=== PATIENT | female | born 1970 | race Caucasian/White ===

== ENCOUNTER 2023-07-07 05:36 | Day surgery (SDC) | payer SELFPAY ==
[2023-07-02 05:44] LABS: Basophils % (A) 0 %; Eosinophils # (A) 0.1 k/uL (0-0.7); Eosinophils % (A) 2 %; HCT 41.5 % (34.0-46.0); HGB 13.6 gm/dL (11.4-16.0); Lymphocytes # (A) 2.7 k/uL (1.0-4.8); Lymphocytes % (A) 39 %; MCH 29.9 pg (25.0-35.0); MCHC 32.7 g/dL (31.0-37.0); MCV 91.5 fL (80.0-100.0); Mean Platelet Volume 7.5; Monocytes # (A) 0.4 k/uL (0-1.0); Monocytes % (A) 5 %; Neutrophils # (A) 3.6 k/uL (1.3-7.7); Neutrophils % (A) 52 %; Platelet Count 272 k/uL (150-450); RBC 4.53 m/uL (3.80-5.40); RDW 13.3 % (11.5-15.5); WBC 6.9 k/uL (3.8-10.6)
[2023-07-02 06:11] LABS: African American GFR (CKD) >90 (>60 ml/min/1.73 sqM); Anion Gap 8 mmol/L; Blood Urea Nitrogen 23 mg/dL (7-17); Calcium 9.9 mg/dL (8.4-10.2); Carbon Dioxide 29 mmol/L (22-30); Chloride 101 mmol/L (98-107); Glucose 132 mg/dL (74-99); Non-African American GFR(CKD) 85 (>60 ml/min/1.73 sqM); Potassium 4.3 mmol/L (3.5-5.1); Sodium 138 mmol/L (137-145)
[2023-07-06 10:10] VITALS: BMI 37.9
--- NOTE | 2023-07-06 15:26 | P.HPOR ---
History of Present Illness H&P Date: 07/06/23 Subjective: This is a 53 year old female that presents today for initial evaluation regarding a left wrist injury that occurred on 06/25/2023 when she was walking in her driveway and fell onto an outstretched hand and had immediate pain, swelling, and deformity of her left wrist. She was seen at [facility] where she was placed in a sugar tong splint and has been immobilized since then. She denies any numbness or tingling. She denies any other areas of pain. She denies any prior surgery on this hand. 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 Physical Examination: LUE: AIN/PIN/Radial/Ulnar/Median motor intact. Radial/Ulnar/Median SILT. 2+/4 Radial/Ulnar pulses palpated. 5/5 APB, 5/5 FDI. TTP over distal radius with bruising/swelling present. Visual deformity present. Imaging: X-Rays of the left wrist 3V taken in office today demonstrates left intra- articular distal radius fracture with approximately 50 of dorsal angulation. Minimally displaced ulnar styloid base fracture. Impression: 1.) Left intra-articular distal radius fracture 2.) Left ulnar styloid base fracture Plan: Diagnosis and treatment options were discussed with the patient. Due to the amount of displacement I recommend surgical intervention with left distal radius open reduction internal fixation. Risks and benefits of surgery including bleed ing, infection, damage to surrounding tissue, need for further surgery, residual numbness were discussed and the patient wished to go forward with surgery. She wishes to return to work with right handed work only as soon as possible. The patient was agreeable with this plan. -Martinez Carolina DO Orthopedic Hand/Upper Extremity Surgeon Past Medical History Past Medical History: COPD, Diabetes Mellitus, Hypertension Additional Past Medical History / Comment(s): diet control diabetes,fx left wrist w/ fall,hx pablo wrist fx,rt ankle fx History of Any Multi-Drug Resistant Organisms: None Reported Past Surgical History: Cholecystectomy, Hysterectomy Additional Past Surgical History / Comment(s): partial hyst,ORIF rt ankle- hardware remains, lysis of adhesions,goiter removed,external fixator rt wrist Past Anesthesia/Blood Transfusion Reactions: No Reported Reaction Additional Past Anesthesia/Blood Transfusion Reaction / Comment(s): no hx blood transfusion Smoking Status: Former smoker - Past Family History Mother Family Medical History: Cancer Additional Family Medical History / Comment(s): lung CA Sister(s) Family Medical History: Cancer Additional Family Medical History / Comment(s): breast CA Father Family Medical History: Hypertension, Liver Disease Additional Family Medical History / Comment(s): cirrhosis of liver,ETOH induced diabetes Medications and Allergies Home Medications Medication Instructions Recorded Confirmed Type Ibuprofen [Motrin] 600 mg PO Q6HR PRN 07/06/23 07/06/23 History Multivit with Calcium,Iron,Min 1 each PO DAILY 07/06/23 07/06/23 History [Women's Multivitamin] Vitamin C/Biotin [Hair, Skin and 1 tab PO DAILY 07/06/23 07/06/23 History Nails Chew] Allergies Allergy/AdvReac Type Severity Reaction Status Date / Time No Known Allergies Allergy Verified 07/06/23 09:30 Physical Examination Osteopathic Statement: *. No significant issues noted on an osteopathic structural exam other than those noted in the History and Physical/Consult. Results - Labs Labs: H & H 07/02/23 Range/Units 05:27 Hgb 13.6 (11.4-16.0) gm/dL Hct 41.5 (34.0-46.0) % Result Diagrams: 07/02/23 05:27 07/02/23 05:27
[2023-07-07] MEDS ORDERED: LACTATED RINGERS 1,000 ML IV ONE ×2 (06:26→08:35)
[2023-07-07 06:42] LABS: Glucose,Whole Blood 136 mg/dL (70-110)
[2023-07-07] MEDS ORDERED: ONDANSETRON 4 MG/2 ML VIAL ONE (06:50)
[2023-07-07] MEDS ORDERED: MIDAZOLAM 2 MG/2 ML VIAL IVP ONE (06:55)
[2023-07-07] MEDS ORDERED: fentaNYL (PF) 50 MCG/ML 2 ML AMP IVP ONE (06:55)
[2023-07-07] MEDS ORDERED: ONDANSETRON 4 MG/2 ML VIAL IVP ONE (07:08)
[2023-07-07] MEDS ORDERED: DEXAMETHASONE SOD PHOSPHATE 4 MG/ML 1 ML VIAL IVP ONE (07:08)
[2023-07-07] MEDS ORDERED: SUCCINYLCHOLINE CHLORIDE 200 MG/10 ML VIAL IV ONE (07:22)
[2023-07-07] MEDS ORDERED: ePHEDrine 50 MG/ML 1 ML VIAL ONE (07:22)
[2023-07-07] MEDS ORDERED: ROPIVACAINE 5 MG/ML 30 ML VIAL ONE (07:22)
[2023-07-07] MEDS ORDERED: NEOSTIGMINE 1 MG/ML 10 ML VIAL ONE (07:22)
[2023-07-07] MEDS ORDERED: PROPOFOL 10 MG/ML 20 ML VIAL IV ONE (07:22)
[2023-07-07] MEDS ORDERED: PHENYLEPHRINE-0.9% NACL SYG 1,000 MCG/10 ML SYRINGE ONE (07:22)
[2023-07-07] MEDS ORDERED: fentaNYL (PF) 50 MCG/ML 2 ML AMP ONE (07:22)
[2023-07-07] MEDS ORDERED: GLYCOPYRROLATE 0.2 MG/ML 2 ML VIAL ONE (07:22)
[2023-07-07] MEDS ORDERED: SODIUM CHLORIDE 0.9% (PF) 10 ML VIAL ONE (07:22)
[2023-07-07] MEDS ORDERED: LIDOCAINE 1% INJ 10MG/ML (20 ML MDV) ONE (07:22)
[2023-07-07] MEDS ORDERED: ROCURONIUM 10 MG/ML (5 ML VIAL) IV ONE (07:22)
--- NOTE | 2023-07-07 07:24 | P.ANPRN ---
Procedure Note - Anesthesia - Nerve Block Performed Left Axillary Single Time Out Performed: Yes ([id number]) Date of Procedure: 07/07/23 Procedure Start Time: 06:56 Procedure Stop Time: 06:59 Indication: Acute Post-Operative Pain, Requested by Surgeon Specifically requested for management of pain by DrJesus: Martinez Carolina Sedation Type: Sedate with meaningful contact maintained Preparation: Sterile Prep Position: Supine (arm over) Catheter: None Needle Types: Pajunk Needle Gauge: 21 Ultrasound used to visualize needle placement: Yes Ultrasound used to observe medication spread: Yes Injectate: 0.5% Ropivacaine (see comment for volume) (30cc + 10cc nacl pf (10cc aliquots around each mskcut, radial median ulnar) Blood Aspirated: No Pain Paresthesia on Injection Noted: No Resistance on Injection: Normal Image Stored and Saved: Yes Events: Uneventful and Well Tolerated
--- NOTE | 2023-07-07 08:53 | P.OP ---
Date of Procedure: 07/07/23 Preoperative Diagnosis: Left intra-articular distal radius fracture Postoperative Diagnosis: Left intra-articular distal radius fracture Procedure(s) Performed: Open reduction internal fixation of left intra-articular distal radius fracture, 3 part. Implants: Barbi Short length standard width Variax 2 volar distal locking plate Anesthesia: [place], regional Surgeon: Martinez Carolina Estimated Blood Loss (ml): 10 Pathology: none sent Condition: stable Disposition: PACU Description of Procedure: This is a 53 year old female who sustained a displaced intra-articular distal radius fracture and presents today for open reduction internal fixation of their left distal radius fracture. Risks and benefits of surgery were discussed with the patient including bleeding, damage to surrounding tissue, infection, need for further surgery as well as risks of anesthesia including pulmonary embolism and even and the patient wished to proceed with surgical intervention. The patients was seen in the pre-operative area by myself. Consent and H&P were completed and updated. The correct extremity was marked in the pre-operative area by myself and all other questions were answered. Operative Narrative: The patient was brought to the operating room by the department of anesthesia. They remained on the portable stretcher and a rolling hand table was brought to the side of the operative extremity. Pre-operative time out was per formed indicating the correct patient, procedure and laterality. All in the room agreed. Pre-operative antibiotics were given prior to skin incision. The patient was then drifted off to sleep by the department of anesthesia. A nonsterile tourniquet was then applied to the operative extremity and the left upper extremity was then prepped and draped in normal sterile fashion. The operative extremity was the exsanguinated with an esmarch bandage and the tourniquet was inflated to 250mmHg. A longitudinal incision centered over the FCR tendon was made with a 15-blade scalpel. Blunt dissection was taken down to the FCR tendon sheath using Bovie cautery for meticulous hemostasis. The FCR sheath was opened with tenotomy scissors. The floor of the FCR sheath was then incised with a 15-blade scalpel and the FPL tendon and muscle belly was swept bluntly in an ulnar direction to reveal the pronator quadratus. Pronator quadratus was sharply incised with a 15-blade scalpel along the radial border of the distal radius, coming across transversely parallel to the joint at the level of the watershed line, radial artery was identified and protected. Periosteal elevator was then used to elev ate the pronator quadratus off the distal radius from a radial to ulnar fashion. A [place] elevator was used to lever the distal piece back into place and free up the fractured fragments. A Standard width short length 3 hole [place] Variax 2 titanium volar locking distal radius plate was chosen to fit the patients anatomy best. This was placed on the distal radius under direct visualization and the oblong hole was drilled and filled with a non-locking screw. The fracture was then reduced to the plate distally and a k-wire was placed in the ulnar most k-wire hole in the proximal row. Fluoroscopy was then utilized to confirm correct placement of plate in the radial/ulnar plane and distal k-wire placement was confirmed to be proximal to the subchondral bone on 20 degree elevated lateral view confirming extra-articular screw placement. Restorationism of radial height, inclination and volar tilt was achieved. The distal rows and radial styloid screw holes were then drilled and filled from ulnar to radial with locking screws. Attention was then brought to the proximal shaft screws. Proximal nonlocking and locking shaft screws were drilled, measured, and filled. The wrist joint was the ranged and full smooth flexion/extension with no crepitus appreciated. Final imaging was taken confirming extra-articular placement of distal screws at DRUJ and radiocarpal joint. The wound was then irrigated. Subcutaneous closure was performed with 4-0 monocryl followed by skin closure with 4-0 nylon suture. Sterile dressing consisting of adaptic, 4x4s, and a volar plaster splint was applied. Tourniquet was let down and the hand had immediate perfusion. The patient was then woken by the department of anesthesia and transferred to PACU in stable condition. Martinez Carolina D.O. Orthopedic Hand/Upper Extremity Surgeon
[2023-07-07] MEDS ORDERED: HYDROmorphone 0.5 MG/0.5 ML SYRINGE IVP ONE ×2 (09:09→09:15)
[2023-07-07 09:10] VITALS: TEMP 97.5
[2023-07-07] MEDS ORDERED: HYDROcodone/APAP 5-325MG 1 EACH TAB ONE (09:49)
[2023-07-07 10:00] VITALS: BP 137/78; PULSE 73; RESP 20
[2023-07-07] MEDS ORDERED: droPERidol 5 MG/2 ML VIAL IVP ONE (10:19)
== END 2023-07-07 11:08 | disposition home or self-care (01) ==
LOC: OR 05:36
PROVIDERS: ATTEND Orthopaedic Surgery Hand Surgery
DX: S52.572A Other intraarticular fracture of lower end of left radius, initial encounter for closed fracture (principal); S52.612A Displaced fracture of left ulna styloid process, initial encounter for closed fracture; E11.9 Type 2 diabetes mellitus without complications; I10 Essential (primary) hypertension; J44.9 Chronic obstructive pulmonary disease, unspecified; Z79.899 Other long term (current) drug therapy; Z87.891 Personal history of nicotine dependence; W19.XXXA Unspecified fall, initial encounter; Y93.01 Activity, walking, marching and hiking
CPT/HCPCS: 64415; 80048; 85025; 25609; C1713; J2250; J0330; J1100; J2710; J0690; J2405; J2001; J3010; J2795; J2704; J1170; J1790; J2371

== ENCOUNTER 2024-01-17 22:27 | Emergency (ER) | payer MEDICAID ==
--- NOTE | 2024-01-17 22:52 | ED ---
Chest Pain HPI - General Chief Complaint: Chest Pain Stated Complaint: Chest Pain Time Seen by Provider: 01/17/24 22:38 Source: patient Mode of arrival: ambulatory Limitations: no limitations - History of Present Illness Initial Comments: This patient is a 53-year-old woman who presents to have evaluation of diaphoresis and chest pressure. The patient states she was working here doing her usual duties when she noticed that she was developing diaphoresis. The patient was very sweaty, and after a few minutes she noticed that there was pressure on her chest and the upper sternal portion. She denied dyspnea, palpitations, nausea or vomiting. Patient states that when the symptoms persisted for 20 minutes she checked and. The symptoms have improved, the diaphoresis has stopped and the chest pressure has cleared. Patient denies known history of cardiac disease. No smoking history. MD Complaint: chest pain -: minutes(s) Onset: during rest Pain Location: substernal Pain Radiation: none Severity: mild Quality: other (Pressure) Consistency: now resolved Improves With: nothing Worsens With: nothing Anginal Symptoms: diaphoresis Treatments Prior to Arrival: none - Related Data Home Medications Medication Instructions Recorded Confirmed Ibuprofen [Motrin] 600 mg PO Q6HR PRN 07/06/23 07/07/23 Multivit with Calcium,Iron,Min 1 each PO DAILY 07/06/23 07/07/23 [Women's Multivitamin] Vitamin C/Biotin [Hair, Skin and 1 tab PO DAILY 07/06/23 07/07/23 Nails Chew] Previous Rx's Medication Instructions Recorded HYDROcodone/APAP 5-325MG [[place] 1 tab PO Q6HR PRN 3 Days #24 tab 07/07/23 5-325] Nitrofurantoin Monohyd/M-Cryst 100 mg PO Q12HR #6 cap 01/18/24 [Macrobid] hydroCHLOROthiazide 25 mg PO DAILY #14 tablet 01/18/24 Allergies Allergy/AdvReac Type Severity Reaction Status Date / Time bupropion [From Wellbutrin] Allergy Rash/Hives Verified 01/17/24 22:37 Review of Systems ROS Statement: Those systems with pertinent positive or pertinent negative responses have been documented in the HPI. ROS Other: All systems not noted in ROS Statement are negative. Constitutional: Denies: fever, chills Respiratory: Denies: cough, dyspnea Cardiovascular: Reports: chest pain. Denies: palpitations, edema, syncope Endocrine: Denies: fatigue Gastrointestinal: Denies: abdominal pain, nausea, vomiting Genitourinary: Denies: dysuria, hematuria Musculoskeletal: Denies: back pain Skin: Denies: rash Neurological: Denies: headache, weakness, numbness EKG Findings - EKG Results: EKG: interpreted by LAUREL, sinus rhythm (Rate 60 bpm), normal axis, normal QRS, normal ST/T - Blocks, [place], Hypertrophy, ST Abn: Repolarization changes or abnormalities: Q-T interval prolongation Past Medical History Past Medical History: COPD, Diabetes Mellitus, Hypertension Additional Past Medical History / Comment(s): diet control diabetes,fx left wrist w/ fall,hx pablo wrist fx,rt ankle fx History of Any Multi-Drug Resistant Organisms: None Reported Past Surgical History: Cholecystectomy, Hysterectomy Additional Past Surgical History / Comment(s): partial hyst,ORIF rt ankle- hardware remains, lysis of adhesions,goiter removed,external fixator rt wrist Past Anesthesia/Blood Transfusion Reactions: No Reported Reaction Additional Past Anesthesia/Blood Transfusion Reaction / Comment(s): no hx blood transfusion Past Psychological History: No Psychological Hx Reported Smoking Status: Former smoker Past Alcohol Use History: None Reported Past Drug Use History: None Reported - Past Family History Mother Family Medical History: Cancer Additional Family Medical History / Comment(s): lung CA Sister(s) Family Medical History: Cancer Additional Family Medical History / Comment(s): breast CA Father Family Medical History: Hypertension, Liver Disease Additional Family Medical History / Comment(s): cirrhosis of liver,ETOH induced diabetes General Exam Limitations: no limitations General appearance: alert, in no apparent distress Head exam: Present: atraumatic, normocephalic Eye exam: Present: normal appearance. Absent: scleral icterus, conjunctival injection Neck exam: Present: normal inspection Respiratory exam: Present: normal lung sounds bilaterally. Absent: respiratory distress, wheezes, rales, rhonchi, stridor, accessory muscle use Cardiovascular Exam: Present: regular rate, normal rhythm, normal heart sounds. Absent: systolic murmur, diastolic murmur, rubs, gallop GI/Abdominal exam: Present: soft. Absent: distended, tenderness, guarding, rebound, rigid, mass Extremities exam: Present: normal inspection, normal capillary refill. Absent: pedal edema, calf tenderness Back exam: Present: normal inspection. Absent: CVA tenderness (R), CVA tenderness (L) Neurological exam: Present: alert Skin exam: Present: warm, dry, intact, normal color. Absent: rash Course Vital Signs 01/17/24 01/17/24 01/17/24 22:38 23:00 23:03 Temperature 93.0 F L 97.5 F L Pulse Rate 60 60 Respiratory 16 18 Rate Blood Pressure 203/91 199/99 O2 Sat by Pulse 100 100 Oximetry 01/17/24 01/18/24 01/18/24 23:30 00:16 00:45 Temperature 97.5 F L Pulse Rate 66 68 Respiratory 15 18 Rate Blood Pressure 169/85 198/92 226/135 O2 Sat by Pulse 100 97 Oximetry 01/18/24 01/18/24 01:03 01:22 Temperature 97.5 F L Pulse Rate 72 78 Respiratory 16 16 Rate Blood Pressure 232/146 219/119 O2 Sat by Pulse 97 97 Oximetry Chest Pain MDM - MDM The patient had chest x-ray that I interpreted as negative for acute infiltrate, pneumothorax, Cardiomegaly or congestive heart failure Patient is 53-year-old woman with episode of diaphoresis and chest discomfort. Her workup is negative. In light of her symptoms I did strongly recommend that she stay for telemetry monitoring, serial cardiac enzymes, cardiology consultation, but the patient is declining at this point. She states that she feels back at her baseline. She does agree to return if symptoms recur. She does understand possibility of missing cardiac event by stopping at this point in the workup. Was pt. sent in by a medical professional or institution (, PA, CONTRACT ADMINISTRATION MANAGER, urgent care, hospital, or [facility]...) When possible be specific @ -[No] Did you speak to anyone other than the patient for history (EMS, parent, family, police, friend...)? What history was obtained from this source @ -[No] Did you review nursing and triage notes (agree or disagree)? Why? @ -[I reviewed and agree with nursing and triage notes] Were old charts reviewed (outside hosp., previous admission, EMS record, old EKG, old radiological studies, urgent care reports/EKG's, [facility] records)? Report findings @ -[No old charts were reviewed] Differential Diagnosis (chest pain, altered mental status, abdominal pain women, abdominal pain men, vaginal bleeding, weakness, fever, dyspnea, syncope, headache, dizziness, GI bleed, back pain, seizure, CVA, palpatations, mental health, musculoskeletal)? @ -[Differential Chest Pain: Stable Angina, Unstable Angina, STEMI, NSTEMI Aortic Dissection, Pneumothorax, Musculoskeletal, Esophageal Spasm GERD, Cholecystitis, Pancreatitis, Zoster, this is not meant to be an all-inclusive list. EKG interpreted by me (3pts min.). @ -[I interpreted as above] X-rays interpreted by me (1pt min.). @ -[I interpreted as above CT interpreted by me (1pt min.). @ -[None done] U/S interpreted by me (1pt. min.). @ -[None done] What testing was considered but not performed or refused? (CT, X-rays, U/S, labs)? Why? @ -[None] What meds were considered but not given or refused? Why? @ -[None] Did you discuss the management of the patient with other professionals (professionals i.e. , PA, CONTRACT ADMINISTRATION MANAGER, lab, RT, psych nurse, social work manager, quality compliance consultant, teacher, giving officer, child support case officer)? Give summary @ -[No] Was smoking cessation discussed for >3mins.? @ -[No] Was critical care preformed (if so, how long)? @ -[No] Were there social determinants of health that impacted care today? How? (Homelessness, low income, unemployed, alcoholism, drug addiction, transportation, low edu. Level, literacy, decrease access to med. care, senior living, rehab)? @ -[No] Was there de-escalation of care discussed even if they declined (Discuss DNR or withdrawal of care, Hospice)? DNR status @ -[No] What co-morbidities impacted this encounter? (DM, HTN, Smoking, COPD, CAD, Cancer, CVA, ARF, Chemo, Hep., AIDS, mental health diagnosis, sleep apnea, morbid obesity)? @ -[None] Was patient admitted / discharged? Hospital course, mention meds given and route, prescriptions, significant lab abnormalities, going to OR and other pertinent info. @ -[See the note above Undiagnosed new problem with uncertain prognosis? @ -[No] Drug Therapy requiring intensive monitoring for toxicity (Heparin, Nitro, Insulin, Cardizem)? @ -[No] Were any procedures done? @ -[No] Diagnosis/symptom? @ -[Acute chest pain Acute, or Chronic, or Acute on Chronic? @ -[Acute Uncomplicated (without systemic symptoms) or Complicated (systemic symptoms)? @ -[default] Side effects of treatment? @ -[No] Exacerbation, Progression, or Severe Exacerbation? @ -[No] Poses a threat to life or bodily function? How? (Chest pain, [place], [place], pneumonia, PE, COPD, DKA, ARF, appy, cholecystitis, CVA, Diverticulitis, Homicidal, [place], threat to staff... and all critical care pts) @ -[There is possible threat to life, requires further evaluation, patient understands need to see cardiology Disposition Clinical Impression: Chest pain Disposition: HOME SELF-CARE Condition: Good Instructions (If sedation given, give patient instructions): Chest Pain (ED) Prescriptions: hydroCHLOROthiazide 25 mg PO DAILY #14 tablet Nitrofurantoin Monohyd/M-Cryst [Macrobid] 100 mg PO Q12HR #6 cap Is patient prescribed a controlled substance at d/c from ED?: No Referrals: Randy Casillas Jr, [Primary Care Provider] - 1-2 days Peter Joyce MD [Medical Doctor] - 1-2 days
[2024-01-17 23:13] LABS: Basophils % (A) 0 %; Eosinophils # (A) 0.2 k/uL (0-0.7); Eosinophils % (A) 2 %; HGB 14.1 gm/dL (11.4-16.0); Lymphocytes # (A) 2.7 k/uL (1.0-4.8); Lymphocytes % (A) 27 %; MCH 29.3 pg (25.0-35.0); MCHC 32.1 g/dL (31.0-37.0); MCV 91.2 fL (80.0-100.0); Mean Platelet Volume 7.3; Monocytes # (A) 0.3 k/uL (0-1.0); Monocytes % (A) 3 %; Neutrophils # (A) 6.6 k/uL (1.3-7.7); Neutrophils % (A) 66 %; Platelet Count 318 k/uL (150-450); RBC 4.82 m/uL (3.80-5.40); RDW 13.1 % (11.5-15.5)
[2024-01-17 23:27] LABS: ALT 19 U/L (4-34); African American GFR (CKD) >90 (>60 ml/min/1.73 sqM); Albumin 4.5 g/dL (3.5-5.0); Amylase 59 U/L (30-110); Anion Gap 9 mmol/L; Blood Urea Nitrogen 19 mg/dL (7-17); Calcium 9.7 mg/dL (8.4-10.2); Carbon Dioxide 25 mmol/L (22-30); Chloride 105 mmol/L (98-107); Glucose 87 mg/dL (74-99); Lipase 145 U/L (23-300); Non-African American GFR(CKD) >90 (>60 ml/min/1.73 sqM); Sodium 139 mmol/L (137-145); Total Bilirubin 0.7 mg/dL (0.2-1.3); Total Protein 7.9 g/dL (6.3-8.2)
[2024-01-17 23:32] LABS: AST 31 U/L (14-36); Alkaline Phosphatase 89 U/L (38-126); Magnesium 2.1 mg/dL (1.6-2.3)
[2024-01-17 23:33] LABS: INR 0.9 (<1.2); Partial Thromboplastin Time 25.5 sec (22.0-30.0); Prothrombin Time 10.5 sec (10.0-12.5)
[2024-01-17] MEDS: ASPIRIN 81 MG PO STA (23:34)
[2024-01-17] MEDS: LABETALOL 5 MG/ML VIAL MDV IVP STA (23:36)
[2024-01-17 23:47] VITALS: TEMP 97.5
--- NOTE | 2024-01-17 23:54 | XR ---
EXAM: XR Chest, 2 Views CLINICAL HISTORY: XR Reason: Chest Pain TECHNIQUE: Frontal and lateral views of the chest. COMPARISON: No relevant prior studies available. FINDINGS: Lungs: Slightly prominent interstitial markings throughout both lungs suggesting mild emphysema or bronchitis. No acute focal infiltrate or consolidation is seen. Pleural space: Unremarkable. No pneumothorax. Heart: Unremarkable. No cardiomegaly. Mediastinum: Unremarkable. Normal mediastinal contour. Bones/joints: Mild osteophytosis in the mid to lower thoracic spine. No acute fracture. Upper abdomen: Cholecystectomy clips in the right upper quadrant. IMPRESSION: Slightly prominent interstitial markings throughout both lungs suggesting mild emphysema or bronchitis. No acute focal infiltrate or consolidation is seen.
[2024-01-18 00:01] LABS: Amorphous Sediment,Urine Occasional /hpf; Appearance,Urine Clear (Clear); Bacteria,Urine Occasional /hpf; Bilirubin,Urine Negative (Negative); Blood,Urine Negative (Negative); Color,Urine Light Yellow; Glucose,Urine (UA) Negative (Negative); Hyaline Casts,Urine 7 /lpf (0-2); Ketones,Urine Trace (Negative); Leukocyte Esterase,Urine Trace (Negative); Mucus,Urine Occasional /hpf; Nitrite,Urine Negative (Negative); PH, Urine 5.5 (5.0-8.0); Protein,Urine Negative (Negative); Specific Gravity,Urine 1.026 (1.001-1.035); Squamous Epithelial Cell,Urine 4 /hpf (0-4); Urobilinogen,Urine <2.0 mg/dL (<2.0); WBC,Urine 12 /hpf (0-5)
[2024-01-18 00:24] LABS: T4, Free (Free Thyroxine) 1.11 ng/dL (0.78-2.19)
[2024-01-18] MEDS: SODIUM CHLORIDE 0.9% 1,000 ML IV ONE (00:56)
[2024-01-18 01:45] VITALS: BP 219/119; PULSE 78; RESP 16
== END 2024-01-18 01:25 | disposition home or self-care (01) ==
LOC: EC 22:27
DX: R07.89 Other chest pain (principal); Z87.891 Personal history of nicotine dependence; Z88.8 Allergy status to other drugs, medicaments and biological substances
CPT/HCPCS: 36415; 93005; 85379; 84439; 80053; 84443; 82150; 83605; 83690; 83735; 84484; 85025; 85610; 85730; 81001; 71046; 99285; 96374; J1920

== ENCOUNTER 2024-06-30 07:48 | Emergency (ER) | payer MEDICAID ==
[2024-06-30 07:54] VITALS: TEMP 98.1
--- NOTE | 2024-06-30 08:05 | ED ---
Upper Extremity HPI <Kashif Tinajero - Last Filed: 06/30/24 13:12> - General Source: patient, RN notes reviewed Mode of arrival: ambulatory Limitations: no limitations <Gayatri Barone - Last Filed: 06/30/24 16:40> - General Chief Complaint: Extremity Injury, Upper Stated Complaint: fell R arm injury Time Seen by Provider: 06/30/24 08:03 - History of Present Illness Initial Comments: 54-year-old female presented to the ER with a chief complaint of a fall. Patient states last night she accidentally slipped and fell landing on her right forearm. Patient could reports noted deformity to wrist and extreme pain. No head injury, loss of consciousness or blood thinner use. Patient reports paresthesias to fingers but states this is normal. Patient has not taken anything for pain at this time. Patient denies any other injuries or complaints. (Gayatri Barone) - Related Data Home Medications Medication Instructions Recorded Confirmed Ibuprofen [Motrin] 600 mg PO Q6HR PRN 07/06/23 07/07/23 Multivit with Calcium,Iron,Min 1 each PO DAILY 07/06/23 07/07/23 [Women's Multivitamin] Vitamin C/Biotin [Hair, Skin and 1 tab PO DAILY 07/06/23 07/07/23 Nails Chew] Previous Rx's Medication Instructions Recorded HYDROcodone/APAP 5-325MG [[place] 1 tab PO Q6HR PRN 3 Days #24 tab 07/07/23 5-325] Nitrofurantoin Monohyd/M-Cryst 100 mg PO Q12HR #6 cap 01/18/24 [Macrobid] hydroCHLOROthiazide 25 mg PO DAILY #14 tablet 01/18/24 Amoxicillin 875 mg PO Q12HR #20 tablet 05/04/24 HYDROcodone/APAP 7.5-325MG [[place] 1 tab PO Q6HR PRN 3 Days #12 tab 06/30/24 7.5-325] Ketorolac [Toradol] 10 mg PO Q8HR #15 tab 06/30/24 Allergies Allergy/AdvReac Type Severity Reaction Status Date / Time bupropion [From Wellbutrin] Allergy Rash/Hives Verified 06/30/24 07:54 Review of Systems ROS Other: All systems not noted in ROS Statement are negative. <Kashif Tinajero - Last Filed: 06/30/24 13:12> ROS Other: All systems not noted in ROS Statement are negative. <Gayatri Barone - Last Filed: 06/30/24 16:40> ROS Statement: Those systems with pertinent positive or pertinent negative responses have been documented in the HPI. Past Medical History Past Medical History: COPD, Diabetes Mellitus, Hypertension Additional Past Medical History / Comment(s): diet control diabetes,fx left wrist w/ fall,hx pablo wrist fx,rt ankle fx History of Any Multi-Drug Resistant Organisms: None Reported Past Surgical History: Cholecystectomy, Hysterectomy Additional Past Surgical History / Comment(s): partial hyst,ORIF rt ankle- hardware remains, lysis of adhesions,goiter removed,external fixator rt wrist Past Anesthesia/Blood Transfusion Reactions: No Reported Reaction Additional Past Anesthesia/Blood Transfusion Reaction / Comment(s): no hx blood transfusion Past Psychological History: No Psychological Hx Reported Smoking Status: Former smoker Past Alcohol Use History: None Reported Past Drug Use History: None Reported - Past Family History Mother Family Medical History: Cancer Additional Family Medical History / Comment(s): lung CA Sister(s) Family Medical History: Cancer Additional Family Medical History / Comment(s): breast CA Father Family Medical History: Hypertension, Liver Disease Additional Family Medical History / Comment(s): cirrhosis of liver,ETOH induced diabetes <Gayatri Barone - Last Filed: 06/30/24 16:40> General Exam Limitations: no limitations General appearance: alert, in no apparent distress Respiratory exam: Present: normal lung sounds bilaterally. Absent: respiratory distress, wheezes, rales, rhonchi, stridor Cardiovascular Exam: Present: regular rate, normal rhythm, normal heart sounds. Absent: systolic murmur, diastolic murmur, rubs, gallop, clicks Extremities exam: Present: tenderness (right wrist. notable dorsal deformity with edema. 2+ right radial pulse) Neurological exam: Present: alert, oriented X3, CN II-XII intact <Gayatri Barone - Last Filed: 06/30/24 16:40> Course Vital Signs 06/30/24 06/30/24 06/30/24 07:52 09:08 10:47 Temperature 98.1 F 98.1 F Pulse Rate 93 86 69 Respiratory 18 18 20 Rate Blood Pressure 162/101 162/82 157/92 O2 Sat by Pulse 99 97 94 L Oximetry 06/30/24 06/30/24 06/30/24 12:00 12:53 12:58 Temperature Pulse Rate 76 62 73 Respiratory 20 16 16 Rate Blood Pressure 153/87 156/92 150/100 O2 Sat by Pulse 99 98 99 Oximetry 06/30/24 06/30/24 06/30/24 13:02 13:06 13:51 Temperature Pulse Rate 66 60 78 Respiratory 20 20 20 Rate Blood Pressure 150/99 179/86 150/98 O2 Sat by Pulse 99 100 998 H Oximetry Procedures - Orthopedic Fracture Reduction Fracture #1 Consent Obtained: written consent Side: right Fracture Reduction Location: radius Analgesia: procedural sedation Technique: direct manipulation, traction/counter-traction Post Reduction X-rays Demonstrate: acceptable reduction Post-Reduction Neuro Exam: intact Post-Reduction Vascular Exam: intact Splint Applied: Yes Patient Tolerated Procedure: well - Procedural Sedation *Procedural Sedation Start Time: 12:53 *Procedural Sedation Stop Time: 13:25 *Risks,benefits, and alternative therapies discussed?: Yes *Patient indicates understanding of risk/benefit discussion?: Yes *Indications: fracture/dislocation reduction *Previous Adverse Reaction to Anesthesia/Sedation?: No * Testing Complete?: No Reason Test Not Complete:: Emergent Situation *ASA Class: II *Mallampati Airway Score: 2 Preparation: front desk monitor applied, pulse oximeter, capnometry used IV Propofol Dose (mgs): 100 <Kashif Tinajero - Last Filed: 06/30/24 13:12> - Orthopedic Splinting/Casting Injury #1 Side: right Upper Extremity Injury Location: wrist Upper Extremity Immobilizer: sugar tong splint <Gayatri Barone - Last Filed: 06/30/24 16:40> Medical Decision Making - Radiology Data Radiology results: report reviewed, image reviewed <Gayatri Barone - Last Filed: 06/30/24 16:40> - Medical Decision Making Was pt. sent in by a medical professional or institution (Dr. PA, SHIRT MAKER, urgent care, hospital, or [facility]...) When possible be specific @ -No Did you speak to anyone other than the patient for history (EMS, parent, family, police, friend...)? What history was obtained from this source @ -No Did you review nursing and triage notes (agree or disagree)? Why? @ -I reviewed and agree with nursing and triage notes Were old charts reviewed (outside hosp., previous admission, EMS record, old EKG, old radiological studies, urgent care reports/EKG's, [facility] records)? Report findings @ -No old charts were reviewed Differential Diagnosis (chest pain, altered mental status, abdominal pain women, abdominal pain men, vaginal bleeding, weakness, fever, dyspnea, syncope, headache, dizziness, GI bleed, back pain, seizure, CVA, palpatations, mental health, musculoskeletal)? @ -Differential Musculoskeletal: Muscular strain, contusion, ligament sprain, fracture, arthritis, septic arthritis, bursitis, cellulitis, muscle spasm, nerve compression, DVT, arterial occlusion, herpes zoster, electrolyte abnormality, tumor.... This is not meant to be in all inclusive list EKG interpreted by me (3pts min.). @ -None done X-rays interpreted by me (1pt min.). @ -Right wrist x-ray interpreted me showing a displaced of the distal right radius. There is also an ulnar styloid fracture. CT interpreted by me (1pt min.). @ -None done U/S interpreted by me (1pt. min.). @ -None done What testing was considered but not performed or refused? (CT, X-rays, U/S, labs)? Why? @ -None What meds were considered but not given or refused? Why? @ -None Did you discuss the management of the patient with other professionals (professionals i.e. , PA, SHIRT MAKER, lab, RT, psych nurse, nephrology social worker, aids nurse, teacher, transit authority police officer, protective services case worker)? Give summary @ -No Was smoking cessation discussed for >3mins.? @ -No Was critical care preformed (if so, how long)? @ -No Were there social determinants of health that impacted care today? How? (Homelessness, low income, unemployed, alcoholism, drug addiction, transportation, low edu. Level, literacy, decrease access to med. care, senior living, rehab)? @ -No Was there de-escalation of care discussed even if they declined (Discuss DNR or withdrawal of care, Hospice)? DNR status @ -No What co-morbidities impacted this encounter? (DM, HTN, Smoking, COPD, CAD, Cancer, CVA, ARF, Chemo, Hep., AIDS, mental health diagnosis, sleep apnea, morbid obesity)? @ -None Was patient admitted / discharged? Hospital course, mention meds given and route, prescriptions, significant lab abnormalities, going to OR and other pertinent info. @ -Discharge. 54-year-old female presented to the ER with a chief complaint of a fall. History and physical exam completed. Patient is hypertensive on arrival at 162/101 which is likely due to pain. Vitals otherwise unremarkable. Exam remarkable for tenderness to distal right radius with edema present. Right upper extremity neurovascularly intact. There is dorsal deformity present. X- rays obtained showing a distal radius fracture with mild displacement. There is also an ulnar styloid fracture. Patient received Dilaudid for pain control in the ER, with improvement. Conscious sedation performed for fracture reduction with improvement of displacement on post reduction films. Splint placed, see note above. Patient remained neurovascularly intact post reduction and splint placement. Patient monitored in the ER approximately 1 hour post sedation with return to baseline. Patient discharged with Toradol and [place]. I advised close follow-up with orthopedics, referral given. Strict return parameters discussed. Patient discharged in stable condition with follow-up to PCP. Patient verbally expressed understanding and agreement with care plan. Case discussed with ED attending, Dr. Tinajero. ] Undiagnosed new problem with uncertain prognosis? @ -No Drug Therapy requiring intensive monitoring for toxicity (Heparin, Nitro, Insulin, Cardizem)? @ -No Were any procedures done? @ -Yes Diagnosis/symptom? @ -Distal radius fracture/ulnar styloid fracture Acute, or Chronic, or Acute on Chronic? @ -Acute Uncomplicated (without systemic symptoms) or Complicated (systemic symptoms)? @ -Uncomplicated Side effects of treatment? @ -No Exacerbation, Progression, or Severe Exacerbation? @ -No Poses a threat to life or bodily function? How? (Chest pain, [place], [place], pneumonia, PE, COPD, DKA, ARF, appy, cholecystitis, CVA, Diverticulitis, Homicidal, Suicidal, threat to staff... and all critical care pts) @ -No (Gayatri Barone) Disposition <Kashif Tinajero - Last Filed: 06/30/24 13:12> Is patient prescribed a controlled substance at d/c from ED?: Yes When asked, does pt state using other controlled substances?: No If prescribed controlled substance>3 days was MAPS reviewed?: Prescribed <3 Days If opioid is for acute pain is fill amount 7 days or less?: Yes If Rx opioid, was Start Talking consent form obtained?: Yes Time of Disposition: 13:42 <Gayatri Barone - Last Filed: 06/30/24 16:40> Clinical Impression: Distal radius fracture, Fracture of ulnar styloid Disposition: HOME SELF-CARE Instructions (If sedation given, give patient instructions): Arm Fracture in Adults (ED), Moderate Sedation (ED) Prescriptions: HYDROcodone/APAP 7.5-325MG [[place] 7.5-325] 1 tab PO Q6HR PRN 3 Days #12 tab PRN Reason: Pain Ketorolac [Toradol] 10 mg PO Q8HR #15 tab Referrals: Randy Casillas Jr, DO [Primary Care Provider] - 1-2 days Jared Aparicio MD [STAFF PHYSICIAN] - 1-2 days
[2024-06-30] MEDS: HYDROmorphone 1 MG/ML 1 ML SYRINGE IM STA (08:09)
[2024-06-30] MEDS: ONDANSETRON ODT 4 MG TAB PO STA (08:10)
--- NOTE | 2024-06-30 08:35 | XR ---
Right hand HISTORY: Pain following fall. COMPARISON: None. TECHNIQUE: 3 views right hand were obtained. FINDINGS: There is no fracture, dislocation or focal intraosseous abnormality of the digits or carpal bones. There is a comminuted intra-articular fracture of the distal radius and a displaced fracture of the u lnar styloid process.. IMPRESSION: Intra-articular fractures of the right wrist as described above. [facility], Workstation: [email or web address] 06/30/2024 8:33 AM
--- NOTE | 2024-06-30 08:36 | XR ---
Right wrist. HISTORY: Pain following fall. COMPARISON: None. TECHNIQUE: 4 views of the right wrist are obtained. FINDINGS: There is a markedly comminuted, mildly displaced intra-articular fracture of the distal right radius. There is a mildly displaced fracture of the ulnar styloid process. The carpal bones and articulations are normal. IMPRESSION: Comminuted intra-articular fractures of the right wrist as described above. [facility], Workstation: [email or web address] 06/30/2024 8:34 AM
[2024-06-30] MEDS: KETOROLAC 15 MG/ML 1 ML VIAL IVP STA (09:06)
[2024-06-30 13:04] VITALS: RESP 20
[2024-06-30] MEDS: PROPOFOL 10 MG/ML 20 ML VIAL IV ONE (13:05)
[2024-06-30] MEDS: HYDROmorphone 0.5 MG/0.5 ML SYRINGE IVP STA (13:16)
--- NOTE | 2024-06-30 13:16 | XR ---
Right wrist limited. HISTORY: Reduction of right wrist fractures. COMPARISON: 06/30/2024. TECHNIQUE: 2 views right wrist are obtained with a cast on the right wrist. FINDINGS: Fractures of the distal right radius and ulnar styloid are again seen. There is mild displacement but near anatomic alignment. IMPRESSION: Reduction of the right wrist fractures as described above. [facility], Workstation: [email or web address], 06/30/2024 1:14 PM
[2024-06-30 13:52] VITALS: BP 150/98; PULSE 78
== END 2024-06-30 13:52 | disposition home or self-care (01) ==
LOC: EC 07:48
DX: S52.611A Displaced fracture of right ulna styloid process, initial encounter for closed fracture (principal); S52.501A Unspecified fracture of the lower end of right radius, initial encounter for closed fracture; Z87.891 Personal history of nicotine dependence; Z88.8 Allergy status to other drugs, medicaments and biological substances; W01.0XXA Fall on same level from slipping, tripping and stumbling without subsequent striking against object, initial encounter
CPT/HCPCS: 73100; 73110; 73130; 99283; 25605; 96374; 96375 ×2; 96372; J1171 ×2; J1885; J2704

== ENCOUNTER 2025-03-10 12:34 | Emergency (ER) | payer MEDICAID ==
--- NOTE | 2025-03-10 12:36 | ED ---
General Adult HPI - General Stated complaint: Chest pain Time Seen by Provider: 03/10/25 12:35 - History of Present Illness Initial comments: Dictation was produced using [employer] dictation software. please excuse any grammatical, word or spelling errors. Chief Complaint: 55-year-old female with chest pain History of Present Illness: Patient 55-year-old female with hypertension and family history of acute coronary syndrome presents to the ER for several hours of chest pain. Patient is a nurse to our emergency department. States that she has right anterior chest pain that feels like an ache associated diaphoresis and nausea. Patient denies any cardiac history. She does have remote tobacco use history. She has history of COPD. Denies any cardiac history. The ROS documented in this emergency department record has been reviewed and confirmed by me. Those systems with pertinent positive or negative responses have been documented in the HPI. All other systems are other negative and/or noncontributory. - Related Data Home Medications Medication Instructions Recorded Confirmed Ibuprofen [Motrin] 600 mg PO Q6HR PRN 07/06/23 07/07/23 Multivit with Calcium,Iron,Min 1 each PO DAILY 07/06/23 07/07/23 [Women's Multivitamin] Vitamin C/Biotin [Hair, Skin and 1 tab PO DAILY 07/06/23 07/07/23 Nails Chew] Previous Rx's Medication Instructions Recorded HYDROcodone/APAP 5-325MG [[place] 1 tab PO Q6HR PRN 3 Days #24 tab 07/07/23 5-325] Nitrofurantoin Monohyd/M-Cryst 100 mg PO Q12HR #6 cap 01/18/24 [Macrobid] hydroCHLOROthiazide 25 mg PO DAILY #14 tablet 01/18/24 Amoxicillin 875 mg PO Q12HR #20 tablet 05/04/24 HYDROcodone/APAP 7.5-325MG [[place] 1 tab PO Q6HR PRN 3 Days #12 tab 06/30/24 7.5-325] Ketorolac [Toradol] 10 mg PO Q8HR #15 tab 06/30/24 Amoxic-Pot Clav 875-125Mg 1 tab PO Q12HR 10 Days #20 tab 02/04/25 [Augmentin 875-125] predniSONE 50 mg PO DAILY 5 Days #5 tab 02/04/25 Allergies Allergy/AdvReac Type Severity Reaction Status Date / Time bupropion [From Wellbutrin] Allergy Rash/Hives Verified 06/30/24 07:54 Review of Systems ROS Statement: Those systems with pertinent positive or pertinent negative responses have been documented in the HPI. ROS Other: All systems not noted in ROS Statement are negative. Past Medical History Past Medical History: COPD, Diabetes Mellitus, Hypertension Additional Past Medical History / Comment(s): diet control diabetes,fx left wrist w/ fall,hx pablo wrist fx,rt ankle fx History of Any Multi-Drug Resistant Organisms: None Reported Past Surgical History: Cholecystectomy, Hysterectomy Additional Past Surgical History / Comment(s): partial hyst,ORIF rt ankle- hardware remains, lysis of adhesions,goiter removed,external fixator rt wrist Past Anesthesia/Blood Transfusion Reactions: No Reported Reaction Additional Past Anesthesia/Blood Transfusion Reaction / Comment(s): no hx blood transfusion Past Psychological History: No Psychological Hx Reported Smoking Status: Former smoker Past Alcohol Use History: None Reported Past Drug Use History: None Reported - Past Family History Mother Family Medical History: Cancer Additional Family Medical History / Comment(s): lung CA Sister(s) Family Medical History: Cancer Additional Family Medical History / Comment(s): breast CA Father Family Medical History: Hypertension, Liver Disease Additional Family Medical History / Comment(s): cirrhosis of liver,ETOH induced diabetes General Exam - General Exam Comments Initial Comments: PHYSICAL EXAM: General Impression: Alert and oriented x3, not in acute distress HEENT: Normocephalic atraumatic, extra-ocular movements intact, pupils equal and reactive to light bilaterally, mucous membranes moist. Cardiovascular: Heart regular rate and rhythm Chest: Able to complete full sentences, no retractions, no tachypnea Abdomen: abdomen soft, non-tender, non-distended, no organomegaly Musculoskeletal: Pulses present and equal in all extremities, no peripheral edema Motor: no focal deficits noted Neurological: CN II-XII grossly intact, no focal motor or sensory deficits noted Skin: Intact with no visualized rashes Psych: Normal affect and mood Course Vital Signs 03/10/25 03/10/25 03/10/25 12:37 13:34 14:30 Temperature 98 F Pulse Rate 82 79 69 Respiratory 20 16 18 Rate Blood Pressure 152/104 134/90 152/92 O2 Sat by Pulse 96 96 99 Oximetry 03/10/25 16:31 Temperature Pulse Rate 64 Respiratory 18 Rate Blood Pressure 163/102 O2 Sat by Pulse 99 Oximetry EKG Findings - EKG Comments: EKG Findings:: My EKG interpretation: Ventricular rate 79, sinus rhythm, GA 142, cures 95 QTc 398. No GA prolongation, no QTC prolongation, no ST or T-wave changes noted. Overall, this EKG is unremarkable Medical Decision Making - Medical Decision Making Was pt. sent in by a medical professional or institution (, PA, PATIENT'S LIBRARIAN, urgent care, hospital, or [place] health care facility...) When possible be specific @ -No Did you speak to anyone other than the patient for history (EMS, parent, family, police, friend...)? What history was obtained from this source @ -No Did you review nursing and triage notes (agree or disagree)? Why? @ -I reviewed and agree with nursing and triage notes Were old charts reviewed (outside hosp., previous admission, EMS record, old EKG, old radiological studies, urgent care reports/EKG's, [place] health care facility records)? Report findings @ -No old charts were reviewed Differential Diagnosis (chest pain, altered mental status, abdominal pain women, abdominal pain men, vaginal bleeding, musculoskeletal, weakness, fever, dyspnea, syncope, headache, dizziness, GI bleed, back pain, seizure, CVA, palpatations, mental health)? @ -Differential Chest Pain: Stable Angina, Unstable Angina, STEMI, NSTEMI Aortic Dissection, Pneumothorax, Musculoskeletal, Esophageal Spasm GERD, Cholecystitis, Pancreatitis, Zoster, this is not meant to be an all-inclusive list. EKG interpreted by me (3pts min.). @ -See above X-rays interpreted by me (1pt min.). @ -Chest x-ray is nonacute CT interpreted by me (1pt min.). @ -None done U/S interpreted by me (1pt. min.). @ -None done What testing was considered but not performed or refused? (CT, X-rays, U/S, labs)? Why? @ -None What meds were considered but not given or refused? Why? @ -None Was smoking cessation discussed for >3mins.? @ -No Were there social determinants of health that impacted care today? How? (Homelessness, low income, unemployed, alcoholism, drug addiction, transportation, low edu. Level, literacy, decrease access to med. care, usp, rehab)? @ -No Was there de-escalation of care discussed even if they declined (Discuss DNR or withdrawal of care, Hospice)? DNR status @ -No What co-morbidities impacted this encounter? (DM, HTN, Smoking, COPD, CAD, Cancer, CVA, ARF, Chemo, Hep., AIDS, mental health diagnosis, sleep apnea, mor bid obesity)? @ -None Was patient admitted / discharged? Hospital course, mention meds given and [place], prescriptions, significant lab abnormalities, going to OR and other pertinent info. @ -55-year-old female with chest pain. Symptoms concerning for ACS. Symptoms did resolve slightly with nitroglycerin. EKG is unremarkable. Serial troponins are negative. Strongly advised patient be admitted to observation however she declined prefer to be discharged. Patient told that her clinical presentation is suspect for acute coronary syndrome given that she has moderate heart score. Labs otherwise unremarkable. Patient given strict return precautions. Otherwise told to follow-up with cardiology or PCP for outpatient stress test Did you discuss the management of the patient with other professionals (professionals i.e. , PA, PATIENT'S LIBRARIAN, lab, RT, psych nurse, social media editor, pyrotechnics press tender, teacher, neighborhood conservation officer, high risk case manager)? Give summary @ -No Was critical care preformed (if so, how long)? @ -No Undiagnosed new problem with uncertain prognosis? @ -No Drug Therapy requiring intensive monitoring for toxicity (Heparin, Nitro, Insulin, Cardizem)? @ -No Were any procedures done? @ -No Diagnosis/symptom? Acute, or Chronic, or Acute on Chronic? Uncomplicated (without systemic symptoms) or Complicated (systemic symptoms)? @ -Chest pain Side effects of treatment? @ -No Exacerbation, Progression, or Severe Exacerbation? @ -No Poses a threat to life or bodily function? How? (Chest pain, [place], [place], pneumonia, PE, COPD, DKA, ARF, appy, cholecystitis, CVA, Diverticulitis, Homicidal, Suicida l, threat to staff... and all critical care pts) @ -yes - Lab Data Result diagrams: 03/10/25 12:35 03/10/25 12:35 Lab Results 03/10/25 03/10/25 03/10/25 Range/Units 12:35 12:35 12:35 WBC 9.72 (4.50-10.00) 10*3/uL RBC 4.75 (4.10-5.20) 10*6/uL Hgb 14.1 (12.0-15.0) g/dL Hct 42.5 (37.2-46.3) % MCV 89.5 (80.0-97.0) fL MCH 29.7 (27.0-32.0) pg MCHC 33.2 (32.0-37.0) g/dL Plt Count 373 (140-440) 10*3/uL MPV 9.2 L (9.5-12.2) fL Immature Gran % (Auto) 0.2 % Neutrophils % 69.0 % Lymphocytes % 24.0 % Monocytes % 5.3 % Eosinophils % 1.2 % Basophils % 0.3 % Immature Gran # 0.02 (0.00-0.04) 10*3/uL Neutrophils # 6.70 (1.80-7.70) 10*3/uL Lymphocytes # 2.33 (0.90-5.00) 10*3/uL Monocytes # 0.52 (0.20-1.00) 10*3/uL Eosinophils # 0.12 (0.04-0.35) 10*3/uL Basophils # 0.03 (0.00-0.10) 10*3/uL PT 10.8 (10.0-12.5) sec INR 1.0 (<1.2) APTT 25.8 (22.0-30.0) sec Sodium 140 (137-145) mmol/L Potassium 4.1 (3.5-5.1) mmol/L Chloride 101 (98-107) mmol/L Carbon Dioxide 26 (22-30) mmol/L Anion Gap 13 mmol/L BUN 21 H (7-17) mg/dL Creatinine 0.84 (0.52-1.04) mg/dL Est GFR (CKD-EPI)AfAm 89 (>60 ml/min/1.73 sqM) Est GFR (CKD-EPI)NonAf 77 (>60 ml/min/1.73 sqM) Glucose 156 H (74-99) mg/dL Calcium 9.9 (8.4-10.2) mg/dL Magnesium 2.1 (1.6-2.3) mg/dL Total Bilirubin 0.8 (0.2-1.3) mg/dL AST 23 (14-36) U/L ALT 15 (4-34) U/L Alkaline Phosphatase 83 (38-126) U/L Troponin I (0.000-0.034) ng/mL Total Protein 7.7 (6.3-8.2) g/dL Albumin 4.6 (3.5-5.0) g/dL 03/10/25 03/10/25 Range/Units 12:35 15:43 WBC (4.50-10.00) 10*3/uL RBC (4.10-5.20) 10*6/uL Hgb (12.0-15.0) g/dL Hct (37.2-46.3) % MCV (80.0-97.0) fL MCH (27.0-32.0) pg MCHC (32.0-37.0) g/dL Plt Count (140-440) 10*3/uL MPV (9.5-12.2) fL Immature Gran % (Auto) % Neutrophils % % Lymphocytes % % Monocytes % % Eosinophils % % Basophils % % Immature Gran # (0.00-0.04) 10*3/uL Neutrophils # (1.80-7.70) 10*3/uL Lymphocytes # (0.90-5.00) 10*3/uL Monocytes # (0.20-1.00) 10*3/uL Eosinophils # (0.04-0.35) 10*3/uL Basophils # (0.00-0.10) 10*3/uL PT (10.0-12.5) sec INR (<1.2) APTT (22.0-30.0) sec Sodium (137-145) mmol/L Potassium (3.5-5.1) mmol/L Chloride (98-107) mmol/L Carbon Dioxide (22-30) mmol/L Anion Gap mmol/L BUN (7-17) mg/dL Creatinine (0.52-1.04) mg/dL Est GFR (CKD-EPI)AfAm (>60 ml/min/1.73 sqM) Est GFR (CKD-EPI)NonAf (>60 ml/min/1.73 sqM) Glucose (74-99) mg/dL Calcium (8.4-10.2) mg/dL Magnesium (1.6-2.3) mg/dL Total Bilirubin (0.2-1.3) mg/dL AST (14-36) U/L ALT (4-34) U/L Alkaline Phosphatase (38-126) U/L Troponin I <0.012 <0.012 (0.000-0.034) ng/mL Total Protein (6.3-8.2) g/dL Albumin (3.5-5.0) g/dL Disposition Clinical Impression: Chest pain Disposition: HOME SELF-CARE Condition: Fair Instructions (If sedation given, give patient instructions): Chest Pain (ED) Is patient prescribed a controlled substance at d/c from ED?: No Referrals: Randy Casillas Jr, DO [Primary Care Provider] - 1-2 days Rj Abarca DO [STAFF PHYSICIAN] - 1-2 days Time of Disposition: 16:36
[2025-03-10 12:39] VITALS: TEMP 98
[2025-03-10] MEDS: ASPIRIN 81 MG PO STA (12:43)
[2025-03-10] MEDS: NITROGLYCERIN SL TABS 0.4 MG TAB SUBLINGUAL STA (12:44)
[2025-03-10 12:47] LABS: Basophils # (A) 0.03 10*3/uL (0.00-0.10); Basophils % (A) 0.3 %; Eosinophils # (A) 0.12 10*3/uL (0.04-0.35); Eosinophils % (A) 1.2 %; HCT 42.5 % (37.2-46.3); HGB 14.1 g/dL (12.0-15.0); Lymphocytes # (A) 2.33 10*3/uL (0.90-5.00); Lymphocytes % (A) 24.0 %; MCH 29.7 pg (27.0-32.0); MCHC 33.2 g/dL (32.0-37.0); MCV 89.5 fL (80.0-97.0); Monocytes # (A) 0.52 10*3/uL (0.20-1.00); Monocytes % (A) 5.3 %; Neutrophils # (A) 6.70 10*3/uL (1.80-7.70); Neutrophils % (A) 69.0 %; Platelet Count 373 10*3/uL (140-440); RBC 4.75 10*6/uL (4.10-5.20); RDW 13.1 % (11.5-14.5); WBC 9.72 10*3/uL (4.50-10.00)
[2025-03-10 12:56] LABS: INR 1.0 (<1.2); Partial Thromboplastin Time 25.8 sec (22.0-30.0); Prothrombin Time 10.8 sec (10.0-12.5)
[2025-03-10 12:58] LABS: ALT 15 U/L (4-34); AST 23 U/L (14-36); African American GFR (CKD) 89 (>60 ml/min/1.73 sqM); Albumin 4.6 g/dL (3.5-5.0); Alkaline Phosphatase 83 U/L (38-126); Anion Gap 13 mmol/L; Blood Urea Nitrogen 21 mg/dL (7-17); Calcium 9.9 mg/dL (8.4-10.2); Carbon Dioxide 26 mmol/L (22-30); Chloride 101 mmol/L (98-107); Glucose 156 mg/dL (74-99); Magnesium 2.1 mg/dL (1.6-2.3); Non-African American GFR(CKD) 77 (>60 ml/min/1.73 sqM); Potassium 4.1 mmol/L (3.5-5.1); Sodium 140 mmol/L (137-145); Total Protein 7.7 g/dL (6.3-8.2)
--- NOTE | 2025-03-10 13:11 | XR ---
EXAMINATION TYPE: XR chest 2V DATE OF EXAM: 03/10/2025 12:59 PM COMPARISON: Chest radiographs from 01/17/2024 TECHNIQUE: XR chest 2V Frontal and lateral views of the chest. CLINICAL INDICATION:Female, 55 years old with history of Chest Pain; FINDINGS: Lungs/Pleura: There is no evidence of pleural effusion, focal consolidation, or pneumothorax. Pulmonary vascularity: Unremarkable. Heart/mediastinum: Cardiomediastinal silhouette is unremarkable. Musculoskeletal: Multiple level degenerative disc disease changes seen throughout the spine. Other: Cholecystectomy clips in the right upper quadrant. IMPRESSION: No acute cardiopulmonary disease/process. [facility], , 03/10/2025 1:08 PM
[2025-03-10 14:58] VITALS: RESP 18
[2025-03-10 16:32] VITALS: BP 163/102; PULSE 64
== END 2025-03-10 17:09 | disposition home or self-care (01) ==
LOC: EC 12:34
DX: R07.9 Chest pain, unspecified (principal); Z87.891 Personal history of nicotine dependence; Z88.8 Allergy status to other drugs, medicaments and biological substances
CPT/HCPCS: 36415; 71046; 80053; 83735; 84484; 85025; 85610; 85730; 93005; 99285